=== PATIENT | male | born 1955 | race Caucasian/White ===

== ENCOUNTER 2022-09-19 07:37 | Emergency (ER) | payer BC, OTHER ==
[~2022-09-19] VITALS: Ht 190.5 cm; Wt 79.4 kg
--- NOTE | 2022-09-19 07:40 | NUR ---
Dr Camacho at the bedside for MSE.
[2022-09-19] MEDS ORDERED: diphenhydrAMINE 50 MG/1 ML VIAL IV ONE (07:45)
[2022-09-19] MEDS ORDERED: IV NORMAL SALINE 1000 ML BAG IV ONE (07:45)
[2022-09-19] MEDS ORDERED: FAMOTIDINE. 20 MG/2 ML VIAL IV ONE ×2 (07:45→07:46)
[2022-09-19] MEDS ORDERED: methylPREDNISolone SOD SUCC 125 MG/2 ML VIAL IV ONE (07:45)
[2022-09-19] MEDS ORDERED: diphenhydrAMINE 50 MG/1 ML VIAL ONE (07:46)
[2022-09-19] MEDS ORDERED: methylPREDNISolone SOD SUCC 125 MG/2 ML VIAL ONE (07:46)
[2022-09-19] MEDS ORDERED: DIPH25CA83 PO (08:00)
[2022-09-19] MEDS ORDERED: FAMO-132 PO (08:00)
[2022-09-19] MEDS ORDERED: PRED20TA PO (08:00)
--- NOTE | 2022-09-19 08:00 | NUR ---
Pt states feeling better, observed skin redness decresed and edema around eye are improved.
--- NOTE | 2022-09-19 08:37 | NUR ---
Patient is resting comfortably in bed with eyes closed, NAD noted, continue monitoring.
--- NOTE | 2022-09-19 09:30 | NUR ---
IV removed. Catheter intact and site benign. Pressure and 4x4 gauze applied to site. No bleeding noted.
--- NOTE | 2022-09-19 09:32 | NUR ---
Pt states all symptoms are resolved.
[2022-09-19 09:33] VITALS: BP 118/77
--- NOTE | 2022-09-19 09:33 | NUR ---
Patient discharged to home in stable condition. Written and verbal after care instructions given. Patient verbalizes understanding of instructions. Stressed follow up or return to ER for worsening s/s.
== END 2022-09-19 09:34 | disposition home or self-care (01) ==
LOC: ER 07:37
DX: T78.40XA Allergy, unspecified, initial encounter (principal); Z79.899 Other long term (current) drug therapy; Y92.89 Other specified places as the place of occurrence of the external cause
CPT/HCPCS: A4663; J1200; J2930; J3490; J7040

== ENCOUNTER 2022-09-20 05:33 | Emergency (ER) | payer OTHER, BC ==
[~2022-09-20] VITALS: Ht 188 cm; Wt 79.4 kg
[~2022-09-20 05:33] MED LIST: DIPH25CA83 PO; FAMO-132 PO; PRED20TA PO
--- NOTE | 2022-09-20 05:40 | NUR ---
Dr. Camacho evaluated patient at bedside. MSE in progress.
[2022-09-20] MEDS ORDERED: NITROGLYCERIN OINT 1 GM PACKET TP ONE ×2 (05:45→05:46)
[2022-09-20] MEDS ORDERED: ASPIRIN 81 MG TAB.CHEW PO ONE (05:45)
[2022-09-20 05:46] VITALS: BP 161/85
[2022-09-20] MEDS ORDERED: ASPIRIN 81 MG TAB.CHEW ONE ×2 (05:46→05:51)
[2022-09-20 05:55] LABS: HEMATOCRIT 39.8 % (36.7-47.1); MEAN CORPUSCULAR HEMOGLOBIN 32.4 uug (23.8-33.4); PLATELET COUNT (AUTO) 270 K/uL (152-348)
[2022-09-20 06:04] LABS: CARBON DIOXIDE 27 mmol/L (21-32); CHLORIDE 106 mmol/L (98-107); CREATININE 0.9 mg/dL (0.6-1.3); GLUCOSE 124 mg/dL (74-106); POTASSIUM 4.2 mmol/L (3.5-5.1); UREA NITROGEN, BLOOD 14 mg/dL (7-18)
[2022-09-20] MEDS ORDERED: MAG HYDROX/AL HYDROX/SIMETH 30 ML LIQUID UDC ONE (06:10)
[2022-09-20] MEDS ORDERED: LIDOCAINE VISCUS 2% 15 ML UDC ONE (06:10)
[2022-09-20] MEDS ORDERED: DICYCLOMINE HCL LIQ 10 MG/5 ML UDC ONE (06:10)
[2022-09-20] MEDS ORDERED: OXYCODONE/APAP 5-325 MG TABLET ONE (06:11)
[2022-09-20] MEDS ORDERED: MAG HYDROX/AL HYDROX/SIMETH 30 ML LIQUID UDC PO ONE (06:15)
[2022-09-20] MEDS ORDERED: LIDOCAINE VISCUS 2% 15 ML UDC MM ONE (06:15)
[2022-09-20] MEDS ORDERED: DICYCLOMINE HCL LIQ 10 MG/5 ML UDC PO ONE (06:15)
[2022-09-20] MEDS ORDERED: OXYCODONE/APAP 5-325 MG TABLET PO ONE (06:15)
[2022-09-20 06:17] LABS: ALANINE AMINOTRANSFERASE 19 U/L (16-63); ALKALINE PHOSPHATASE 99 U/L (50-136); ASPARTATE AMINOTRANSFERASE 19 U/L (15-37); BILIRUBIN,DIRECT 0.1 mg/dL (0.0-0.2); BILIRUBIN,TOTAL 0.3 mg/dL (0.2-1.0); TOTAL PROTEIN, SERUM 6.6 g/dL (6.4-8.2)
--- NOTE | 2022-09-20 07:21 | NUR ---
Dr Dockery is at bedside, pending consent for CTA chest at this time.
[2022-09-20] MEDS ORDERED: IV NORMAL SALINE 250 ML IV ONE (07:27)
[2022-09-20] MEDS ORDERED: SWABABLE VALVE TRANSFER SET EA MC ONE (07:27)
[2022-09-20] MEDS ORDERED: IOHEXOL 350 100 ML INFUS..BTL ONE (07:27)
--- NOTE | 2022-09-20 07:32 | NUR ---
Patient is refusing the CTA chest at this time, notified.
--- NOTE | 2022-09-20 08:21 | NUR ---
Patient refused CTA chest, Dr Dockery is at bedside.
--- NOTE | 2022-09-20 09:01 | NUR ---
IV line was removed. Catheter intact and site benign. Pressure and 4x4 gauze applied to site. No bleeding noted. Patient does not wish to proceed with medical care recommended by Dr. Dockery. Patient given information related to possible complications, up to and including , which could occur as a result of leaving the hospital at this time. Patient verbalized understanding of risks involved due to leaving against medical advice. Patient signed AMA form. Copies of all tests' results were also given to patient.
== END 2022-09-20 09:03 | disposition left against medical advice (07) ==
LOC: ER 05:37
DX: R07.89 Other chest pain (principal); F17.210 Nicotine dependence, cigarettes, uncomplicated; Z71.6 Tobacco abuse counseling; Z79.899 Other long term (current) drug therapy
CPT/HCPCS: 36415; 71045; 84484; 85025; 93005; A4663; Q9967